=== PATIENT | male | born 1985 | race Caucasian/White ===

== ENCOUNTER 2020-12-12 20:26 | Emergency (ER) | payer OTHER ==
[2020-12-12 20:36] VITALS: BP 140/92; PULSE 92; BMI 27.1
[2020-12-12] MEDS ORDERED: IBUPROFEN 400 MG TABLET (FP) PO ONE ×2 (20:56→20:59)
== END 2020-12-12 21:09 | disposition home or self-care (01) ==
LOC: FER 20:26
DX: S39.012A Strain of muscle, fascia and tendon of lower back, initial encounter (principal)
CPT/HCPCS: 99281-25